=== PATIENT | male | born 1950 | race Caucasian/White ===

== ENCOUNTER 2023-08-05 08:44 | Emergency (ER) | payer MEDICARE, BC, SELFPAY ==
[2023-08-05 08:47] VITALS: BP 132/100
--- NOTE | 2023-08-05 09:21 | ED.GENMED ---
History of Present Illness
General
Chief Complaint: Cold/Flu/URI Symptoms
Source: patient
Exam Limitations: none
Time Seen by Provider: 08/05/23 09:01
Nursing documentation reviewed up to this point in time: agreed with
Travel History
Have you had any contact with someone who has COVID-19?: No
Do you have any symptoms of coronavirus? Fever > 100 degrees, chills, cough, shortness of breath, sore throat, loss of taste or smell, muscle aches, or headache?: Yes
Symptoms:: cough
History of Present Illness
History of Present Illness:
Patient is a 72-year-old male who presents to the ER complaining of cough for the past 2 days. Patient presents today because he was unable to sleep throughout the night. He is taking Mucinex and Delsym.
He denies any shortness of breath. He has had the sweats and chills.
He denies any actual shortness of breath.
Review of Systems
Review of Systems
Allergies reviewed?: Yes
All Other Systems: ROS reviewed and negative except as documented in HPI and ROS
Constitutional: Reports no symptoms and fatigue; Denies chills
EENT: Reports no symptoms
Respiratory: Reports no symptoms
Cardiac: Reports no symptoms
ABD/GI: Reports no symptoms
: Reports no symptoms
Musculoskeletal: Reports no symptoms
Skin: Reports no symptoms
Neurological: Reports no symptoms
Hematologic/Lymphatic: Reports no symptoms
Psychiatric: Reports no symptoms
Phy Exam
General Physical Exam
General Presentation: no apparent distress
General age: appears stated age
General Skin: warm and dry
General Habitus: normal
General Mental: alert
General Hydration: appears well hydrated
Cardiovascular Exam
Cardiovascular Exam: regular rate/rhythm, no murmur and normal peripheral pulses
Pulmonary Exam
Pulmonary Exam: lungs clear and no respiratory distress
Neurological Exam
Neurological Exam: alert and oriented x3
Musculoskeletal Exam
Musculoskeletal Exam: full ROM
Skin Exam
Skin Exam: normal color and warm/dry
Psychiatric Exam
Psychiatric Exam: normal mood/affect
Course
Orders/Labs/Results
Orders:
Orders
08/05/23 09:33
COVID-19 Antigen Urgent
Source: Nasal Swab
Influenza A+B Rapid Molecular Urgent
JAMI Source: Nasal Swab
Specimen Description:
08/05/23 09:42
CR Chest - 2 Views Urgent
Comment:
Reason For Exam: cough
08/05/23 10:55
IV Insert/Care/Rem.- Treatment PRN
08/05/23 11:23
Complete Blood Count/With Diff Urgent
Comprehensive Metabolic Panel Urgent
Abnormal Lab Results
08/05/23
11:23
WBC 12.2 H 10^3/uL
(4.8-10.8)
Abs Immat Gran (auto) 0.1 H 10^3/uL
(0-0.05)
Absolute Neuts (auto) 10.0 H 10^3/uL
(1.4-6.5)
Absolute Lymphs (auto) 1.1 L 10^3/uL
(1.2-3.4)
Absolute Monos (auto) 0.9 H 10^3/uL
(0.1-0.6)
Neutrophils % 82.1 H %
(42.2-75.2)
Lymphocytes % 9.2 L %
(20.5-51.1)
Glucose 113 H mg/dl
(70-99)
08/05/23 11:23
08/05/23 11:23
Vital Signs
Initial and Last Documented VS:
Initial Vital Signs
Temp Pulse Resp BP Pulse Ox
99.3 F 87 16 132/100 98
08/05/23 08:47 08/05/23 08:47 08/05/23 08:47 08/05/23 08:47 08/05/23 08:47
Last Documented Vital Signs
Temp Pulse Resp BP Pulse Ox
99.3 F 94 16 119/63 95
08/05/23 08:47 08/05/23 12:29 08/05/23 12:29 08/05/23 12:29 08/05/23 12:29
MDM/Problems Addressed
Differential Diagnosis Includes:
Not limited to bronchitis viral syndrome, COVID, influenza pneumonia
MDM/Problems Addressed:
72-year-old male with cough for the past 2 days he reports cough was increasing and he was unable to sleep for the cough. He describes feeling chills and sweats. His temp is 99.3 white count very minimally elevated at 12.2. Chest x-ray shows mild
right midlung airspace concerning for pneumonia versus atelectasis. With patient's symptoms will treat with antibiotics. Patient allergic to penicillin and ? Cephalosporins will treat with Zithromax.
Patient is nontoxic in no acute distress. Not hypoxic
*Critical Care Note
Total Time (30-74mins, 75-104mins- exclusive of procedures): Not Applicable
ED Attending Note
-
Portions of this chart may have been created with voice recognition software.� Occasional wrong word or��sound alike� substitutions may have occurred due to the inherent limitations of voice recognition software.
Discharge Plan
Departure
Patient Disposition: Home (Routine Discharge)
Date of Disposition: 08/05/23
Time of Disposition: 12:54
Patient with high blood pressure during this ER visit?: Yes
Covid-19: Not Applicable
Discharge Problem:
Pneumonia
Instructions: Community-Acquired Pneumonia, Adult (DC), BLOOD PRESSURE
Prescriptions:
New
azithromycin [Zithromax Z-Rafael] 250 mg tablet
250 mg PO DAILY Qty: 6 0RF
Rx Instructions:
500 mg day one followed by 250 mg day 2- 5
Referrals:
PRIVATE,PHYSICIAN [Family Provider] -
Activity Restrictions/Additional Instructions:
Antibiotic as discussed. This medication was sent to [facility] pharmacy in [place]. Stay well-hydrated. Follow-up with a family doctor the next several days return if any worsening of symptoms including difficulty breathing fevers or any further
concerns
Interventions
Interventions:
*Risk Screen - Suicide Last Done: 08/05/23 09:22
*General Assessment Last Done: 08/05/23 09:22
*Neglect/Abuse Screening Last Done: 08/05/23 09:22
ED- Fall Risk Assessment Last Done: 08/05/23 09:22
*ED COVID-19 Vaccine History Last Done: 08/05/23 08:47
ED- Pulmonary Assessment Last Done: 08/05/23 09:25
[2023-08-05 09:22] VITALS: BMI 26.9
[2023-08-05 09:25] VITALS: BP 132/70
--- NOTE | 2023-08-05 09:28 | EDRN ---
Daisy Pabon [employer] in w/ pt at this time.
[2023-08-05 09:57] LABS: COVID-19 Antigen Negative (Negative)
[2023-08-05 11:32] LABS: % Basophils 0.4 % (0-2); % Eosinophils 0.2 % (0-6); % Immature Granulocytes 0.5 % (0-0.5); % Lymphocytes 9.2 % (20.5-51.1); % Monocytes 7.6 % (1.7-9.3); % Neutrophils 82.1 % (42.2-75.2); Absolute Basophils 0.1 10^3/uL (0-0.2); Absolute Immature Granulocytes 0.1 10^3/uL (0-0.05); Absolute Lymphocytes 1.1 10^3/uL (1.2-3.4); Absolute Monocytes 0.9 10^3/uL (0.1-0.6); Hematocrit 47.6 % (39.0-52.0); Hemoglobin 15.7 g/dL (13.0-18.0); Mean Corpuscular Hgb 28.3 pg (27.0-31.0); Mean Corpuscular Volume 85.8 fL (80.0-94.0); Mean Platelet Volume 9.9 fL (7.4-10.4); Nucleated Red Blood Cells % 0 % (-); Platelet Count 272 10^3/uL (130-400); Red Blood Cell Count 5.55 10^6/uL (4.70-6.10); Red Cell Dist. Width 14.1 % (11.5-14.5); White Blood Cell Count 12.2 10^3/uL (4.8-10.8)
[2023-08-05 12:29] VITALS: BP 119/63
[2023-08-05 12:42] LABS: ALT (SGPT) 26 U/L (0-50); AST (SGOT) 29 U/L (17-59); Albumin 4.4 g/dl (3.5-5.0); Alkaline Phosphatase 38 U/L (38-126); Blood Urea Nitrogen 20 mg/dl (9-20); Calcium 9.5 mg/dl (8.4-10.2); Carbon Dioxide 27 mmol/L (22-30); Chloride 103 mmol/L (98-107); Estimated Creatinine Clearance 77 ml/min; Glucose 113 mg/dl (70-99); Potassium 4.4 mmol/L (3.5-5.1); Sodium 138 mmol/L (135-145); Total Protein 6.7 g/dl (6.3-8.2); eGFR > 60.00
== END 2023-08-05 13:05 | disposition home or self-care (01) ==
LOC: EMR 08:44
PROVIDERS: Nurse Practitioner; EMERGENCY PHYSICIAN Emergency Medicine
DX: J18.9 Pneumonia, unspecified organism (principal); R03.0 Elevated blood-pressure reading, without diagnosis of hypertension
CPT/HCPCS: 99284; 71046; 80053; 85025; 87502; 87811